=== PATIENT | male | born 1980 | race Caucasian/White ===

== ENCOUNTER 2023-08-23 14:42 | Outpatient (AMB) | payer OTHER, SELFPAY ==
--- NOTE | 2023-08-23 14:52 | AM.OFFWIN_ITS ---
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 Pt denies any ear pain. Allergies No Known Allergies Allergy (Verified 08/23/23 14:56) HPI HPI Comments History of Present Illness Details 43-year-old male presents today complain ing of hearing loss in his right ear for the last 3 weeks. He did try some omph-zbg-zhsdraj cerumen removed her but that has not helped. [facility] Social History (Updated 08/23/23 @ 14:56 by Amy Frank MA) Household Members Other:: Mother Housing: House Alcohol intake: never Patient Tobacco Use Status: Never used Tobacco Review of Systems Const All systems reviewed & are unremarkable except as noted in HPI and below Physical Exam Vital Signs: Last Vital Signs Temp 98.2 F 08/23/23 14:53 Pulse 81 08/23/23 14:53 BP 122/84 08/23/23 14:53 Pulse Ox 98 08/23/23 14:53 Oxygen Delivery Method Room Air 08/23/23 14:53 BMI result Body Mass Index 27.8 Const General: healthy appearing HEENT Head: Yes normal to inspection, Yes normocephalic and Yes atraumatic Ears: hearing grossly normal bilaterally and unable to visualize TM (Bilateral cerumen impaction) General nose exam: Normal external nose present Results Reviewed Results Reviewed: Bilateral ear irrigation was successful and clear upon completion of procedure Assessment & Plan Assessment & Plan (1) Impacted cerumen of both ears: Code(s): H61.23 - Impacted cerumen, bilateral Plan: The patient will use [id number] irrigation as needed once per week. Plan See plan Coding Level of Care Code Est Pt Level 3 (59033) Diagnoses Impacted cerumen of both ears H61.23
[2023-08-23 14:53] VITALS: BP 122/84; PULSE 81; TEMP 36.8; O2SAT 98; BMI 27.8
== END 2023-08-23 15:45 | disposition home or self-care (01) ==
PROVIDERS: Visit Provider Physician Assistant Medical
DX: H61.23 Impacted cerumen, bilateral (principal)
CPT/HCPCS: 99213

== ENCOUNTER 2023-09-19 10:57 | Outpatient (AMB) | payer OTHER, SELFPAY ==
[2023-09-19 11:06] VITALS: BP 122/78; PULSE 82; TEMP 36.6; O2SAT 98; BMI 27.8
--- NOTE | 2023-09-19 11:06 | AM.OFFWIN_ITS ---
Intake Vital Signs 3 09/19/23 11:06 Height 5 ft 11 in Weight 199 lb BMI 27.8 BP 122/78 Blood Pressure Location Lt brachial Position Sitting Pulse 82 Pulse Source Pulse Oximeter Temp 97.9 F Temp Source Oral Pulse Oximetry (%) 98 Oxygen Delivery Method Room Air Intake Visit Reasons: EP RT foot ?Gout Patient Tobacco Use Status: Never used Tobacco Allergies No Known Allergies Allergy (Verified 09/19/23 11:14) Medication List - Last Reconciled 09/19/23 by Pamella Rosas MD No Known Home Meds Do you need a note to return to daycare/school/sports/work: Yes HPI EP RT foot ?Gout 2 HPI0 Details Patient is a 43-year-old gentleman came in today to be evaluated for possible gout Patient says that he has this pain at least once a year and it is always on the same foot enzymes joint One week ago he ate shrimp On examination patient is 1st metatarsophalangeal joint right side is tender to palpation is slightly swollen Patient was instructed to avoid too much protein drink lots of water I am treating him with indomethacin and prednisone. Patient is to follow with the primary care [facility] Social History Household Members Other:: Mother Housing: House Alcohol intake: never Patient Tobacco Use Status: Never used Tobacco Review of Systems Const All systems reviewed & are unremarkable except as noted in HPI and below Physical Exam Vital Signs: Last Vital Signs Temp 97.9 F 09/19/23 11:06 Pulse 82 09/19/23 11:06 BP 122/78 09/19/23 11:06 Pulse Ox 98 09/19/23 11:06 Oxygen Delivery Method Room Air 09/19/23 11:06 BMI result Body Mass Index 27.8 Const General: no acute distress Orientation/consciousness: patient oriented x3 Eyes General: appearance normal, both eyes and all related structures Resp Effort & Inspection: normal respiratory effort and able to speak in complete sentences Auscultation: clear to auscultation bilaterally Neuro General: patient oriented x3 Extrem Ankle/foot/toe images: 2 1. Tender to pressure, slightly swollen Psych Mental Status: mental status grossly normal Assessment & Plan Assessment & Plan (1) Acute gout: Code(s): M10.9 - Gout, unspecified Qualifiers: Gout site: foot Gout etiology: idiopathic Laterality: right Qualified Code(s): M10.071 - Idiopathic gout, right ankle and foot Plan Patient is a 43-year-old gentleman came in today to be evaluated for possible gout Patient says that he has this pain at least once a year and it is always on the same foot enzymes joint One week ago he ate shrimp On examination patient is 1st metatarsophalangeal joint right side is tender to palpation is slightly swollen Patient was instructed to avoid too much protein drink lots of water I am treating him with indomethacin and prednisone. Review system: Negative for any fever chills need tingling and numbness in the dose, no nausea vomiting abdominal pain Patient is to follow with the primary care Medications: New 2 indomethacin administer with food or milk 50 mg PO BID 14 caps 0RF 7 days prednisone 50 mg PO DAILY 5 tabs 0RF 5 days Coding Level of Care Code Est Pt Level 3 (63166) Diagnoses Acute idiopathic gout of right foot M10.071 Gout site: foot Gout etiology: idiopathic Laterality: right
== END 2023-09-19 14:02 | disposition home or self-care (01) ==
PROVIDERS: Visit Provider Internal Medicine
DX: M10.071 Idiopathic gout, right ankle and foot (principal)
CPT/HCPCS: 99213

== ENCOUNTER 2023-11-09 13:12 | Outpatient (AMB) | payer OTHER, SELFPAY ==
--- NOTE | 2023-11-09 13:15 | AM.OFFWIN_ITS ---
Intake Vital Signs 11/09/23 13:18 Height 5 ft 11 in Weight 200 lb BMI 27.9 BP 120/80 Blood Pressure Location Lt brachial Position Sitting Pulse 74 Pulse Source Pulse Oximeter Temp 98.1 F Temp Source Oral Pulse Oximetry (%) 98 Oxygen Delivery Method Room Air Intake Visit Reasons: EP ?Gout LT foot Intake Note: pt here c/o LT foot pain. ? gout. Started this morning Patient Tobacco Use Status: Never used Tobacco Allergies No Known Allergies Allergy (Verified 11/09/23 13:15) Do you need a note to return to daycare/school/sports/work: No HPI HPI Comments History of Present Illness Details Patient is a 43-year-old male with a past medical history of recent gout flare in his right great toe who is complaining today of pain in his left great toe joint. He states it is painful when he pushes on the joint, but otherwise is not as painful as it was before when he had a flare. He states he did cut out eating shrimp and he is concerned that he has another flare so quickly. He does have an appointment to establish care with a new PCP in the coming months. Denies any fevers or injury to the toe. He has not taken any medication to try to make better and he states only pushing on it really hard makes it worse. He states it is not nearly as painful as the last time he had a flare in August. [facility] Social History Household Members Other:: Mother Housing: House Alcohol intake: never Patient Tobacco Use Status: Never used Tobacco Review of Systems Const All systems reviewed & are unremarkable except as noted in HPI and below Physical Exam Vital Signs: Last Vital Signs Temp 98.1 F 11/09/23 13:18 Pulse 74 11/09/23 13:18 BP 120/80 11/09/23 13:18 Pulse Ox 98 11/09/23 13:18 Oxygen Delivery Method Room Air 11/09/23 13:18 BMI result Body Mass Index 27.9 Const General: cooperative, healthy appearing, comfortable, no acute distress and well developed Orientation/consciousness: patient oriented x3 Limitations: no limitations Neuro General: patient oriented x3 Extrem Other: Left great toe, tenderness to deep palpation, no swelling or erythema or signs of infection noted, full range of motion, neurovascularly intact. Assessment & Plan Assessment & Plan (1) Acute gout: Code(s): M10.9 - Gout, unspecified Qualifiers: Gout etiology: idiopathic Gout site: foot Laterality: right Qualified Code(s): M10.071 - Idiopathic gout, right ankle and foot Plan: Likely very early gout flare, advised I would send indomethacin today and if it gets much worse over the coming days to please call me and then I will send prednisone. Patient understands and agrees with plan. Plan See above Medications: Refilled indomethacin administer with food or milk 50 mg PO BID 7 days 14 caps 0RF Coding Level of Care Code New Pt Level 3 (25425) Diagnoses Acute idiopathic gout of right foot M10.071 Gout etiology: idiopathic Gout site: foot Laterality: right
[2023-11-09 13:18] VITALS: BP 120/80; PULSE 74; TEMP 36.7; O2SAT 98; BMI 27.9
== END 2023-11-09 14:23 | disposition home or self-care (01) ==
PROVIDERS: Visit Provider Physician Assistant
DX: M10.071 Idiopathic gout, right ankle and foot (principal)
CPT/HCPCS: 99213

== ENCOUNTER 2024-03-18 12:18 | Outpatient (AMB) | payer OTHER, SELFPAY ==
[2024-03-18 12:24] VITALS: BP 118/70; PULSE 72; O2SAT 98; BMI 27.3
--- NOTE | 2024-03-18 12:24 | MHC.PC.OV ---
Vital Signs 03/18/24 12:24 Height 5 ft 11 in Weight 196 lb BMI 27.3 BP 118/70 Blood Pressure Location Rt brachial Position Sitting Pulse 72 Pulse Source Pulse Oximeter Pulse Oximetry (%) 98 Oxygen Delivery Method Room Air Intake Visit Reasons: Est care/ Requesting a PE/last seen over 20 years Intake Note: pt is here to est care, requesting a PE. [employer] Required: No Accompanied by: Self / Same As Patient Allergies No Known Allergies Allergy (Verified 03/18/24 12:24) Medication List - Last Reconciled 03/18/24 by AMBER Ellis No Known Home Meds Tobacco use date assessed: 03/18/24 Dental Screening Dental Screen Date: 03/18/24 Did you have a dental visit in the last 12 months?: Yes Did you have a dental problem in the last 6 months where you did not have access to dental care?: No Was dental information given to patient?: Patient has dentist HPI Est care/ Requesting a PE/last seen over 20 years HPI Details New pt is here for a PE. Will order labs. [facility] Surgical History No pertinent past surgical history Family History Mother Heart attack Father No problems noted. Social History Household Members Other:: Mother Housing: House Alcohol intake: never Patient Tobacco Use Status: Never used Tobacco e-Cigarette/Vaping Use: Never Used service: No Current occupational status: employed Current occupational exposures/hazards: No Cognitive needs: No Hearing needs: No Vision needs: No Questionnaire PHQ-9 Over the last 2 weeks, how often have you been bothered by any of the following problems? 1. Little interest or pleasure in doing things: not at all 2. Feeling down, depressed, or hopeless: not at all 3. Trouble falling or staying asleep, or sleeping too much: not at all 4. Feeling tired or having little energy: not at all 5. Poor appetite or overeating: not at all 6. Feeling bad about yourself - or that you are a failure or have let yourself or your family down: not at all 7. Trouble concentrating on things, such as reading the newspaper or watching television: not at all 8. Moving or speaking so slowly that other people could have noticed. Or the opposite - being so fidgety or restless that you have been moving around a lot more than usual: not at all 9. Thoughts that you would be better off or of hurting yourself in some way: not at all Total score: 0 Depression Screening Interpretation: Negative Depression Screening Done: Yes 38094 - PHQ-9 Billing: Yes Source: Developed by Drs. Fratnz Aguilera, Sugey Mcdonald, Adan Forde and colleagues, with an educational kd from [employer]. Thrive Questionnaire Date Thrive assessed: 03/18/24 I am a: Patient What is your living situation today?: I have a steady place to live Within the past 12 months, did the food you bought not last and you didn't have the money to get more?: Never true Within the past 12 months, did you worry whether your food would run out before you got money to buy more?: Never true Do you have trouble paying for medicines?: No Do you have trouble getting transportation to medical appointments?: No Do you have trouble paying your heating and electricity bill?: No Do you have trouble taking care of your child, family member or friend?: No Do you have trouble with day-to-day activities such as bathing, preparing meals, shopping, managing finances, etc.?: No Are you currently unemployed and looking for a job?: No Are you interested in more education?: Yes Please select the resources that you would like help with: None Currently or been in a relationship where the following occur: No concerns reported THRIVE Score: 0 AUDIT C Alcohol Use Questionnaire (AUDIT-C) 1. How often do you have a drink containing alcohol?: Monthly or less 2. How many drinks containing alcohol do you have on a typical day when you are drinking?: 1 or 2 3. How often do you have six or more drinks on one occasion?: Never Total Score: 1 Score Reviewed/Action Taken: Yes YUSUF-7 AMB Questionnaire YUSUF-7 Date YUSUF - 7 assessed: 03/18/24 Feeling nervous, anxious, or on edge: 0 = Not at all Not being able to stop or control worryin = Not at all Worrying too much about different things: 1 = Several days Trouble relaxin = Not at all Being so restless that it is hard to sit still: 0 = Not at all Becoming easily annoyed or irritable: 0 = Not at all Feeling afraid as if something awful might happen: 0 = Not at all Total YUSUF-7 score (0-4 normal; 5-9 mild; 10-14 moderate; 15-21 severe): 1 Source: Developed by Drs. Frantz Aguilera, Sugey Mcdonald, Adan Forde and colleagues, with an educational kd from [employer]. YUSUF-7 Assessment Billing YUSUF-7 Assessment Tool: YUSUF-7 Assessment 27111 Review of Systems Const Denies chills and Denies fever(s) Eyes Denies blurry vision ENT Denies vertigo, Denies dizziness and Denies sore throat Card Denies chest pain at rest, Denies chest pain with activity, Denies diaphoresis, Denies dyspnea and Denies dyspnea on exertion Resp Denies cough, Denies dyspnea, Denies dyspnea on exertion and Denies wheezing GI Denies abdominal pain, Denies melena, Denies hematochezia, Denies constipation, Denies diarrhea and Denies loose stools Denies hematuria Musc Denies numbness and Denies tingling Skin/Breast Denies lesions Neuro Denies vertigo, Denies dizziness, Denies numbness and Denies tingling Psych Denies anxiety, Denies depression, Denies homicidal ideation, Denies suicidal ideation and Denies other (substance abuse) Aller/Immun Denies wheezing Physical exam (Primary Care) Vital Signs: Last Vital Signs Pulse 72 03/18/24 12:24 BP 118/70 03/18/24 12:24 Pulse Ox 98 03/18/24 12:24 Oxygen Delivery Method Room Air 03/18/24 12:24 BMI result Body Mass Index 27.3 Tobacco/Smoking Status: Tobacco use Status Tobacco use date assessed 03/18/24 03/18/24 12:26 Patient Tobacco Use Status Never used Tobacco 03/18/24 12:26 e-Cigarette/Vaping Use Never Used 03/18/24 12:26 PHQ-9: PHQ-9 Score PHQ-9: Total score 0 03/18/24 12:32 Depression Screening Interpretation: Negative Thrive Assessment: Date of Thrive Assessment Date Thrive assessed 03/18/24 03/18/24 12:26 Currently or been in a relationship where the following occur: No concerns reported Const General: cooperative Nutritional Appearance: well nourished Orientation/consciousness: patient oriented x3 HENMT Head: Yes normal to inspection, Yes normocephalic and Yes atraumatic Ears: TM's normal bilaterally Eyes General: appearance normal, both eyes and all related structures Alignment and Position: alignment normal and position normal Neck Neck: Yes normal visual inspection, Yes no lymphadenopathy and Yes supple Resp Effort & Inspection: normal respiratory effort Auscultation: clear to auscultation bilaterally Cardio Rate: regular rate Rhythm: regular rhythm Heart sounds: S1 normal heart sound present, S2 normal heart sound present and no murmurs GI Palpation (GI): Soft to palpation and nontender Auscultation: normal bowel sounds Male General Exam: Yes normal external exam Penis: normal penis Scrotum: scrotum normal, testes descended bilaterally and no inguinal hernias Testes: no testicular mass Skin Rashes: no rashes Neuro General: patient oriented x3, moves all extremities, no focal motor deficits and deep tendon reflexes 2+ bilaterally Romberg Test: Negative Psych Appearance: grossly normal Mental Status: mental status grossly normal Speech and movement: Normal speech and movement present Affect: normal affect Attitude: cooperative Thought process: Normal thought process present Thought content: Normal thought content present Insight: Good insight present (Psych) Judgement: Good judgement present (Psych) Coding Level of Care Code New Pt Prev Care 40-64y(99305) Diagnoses Physical exam Z00. Additional Codes YUSUF-7 Assessment Billing - YUSUF-7 Assessment Tool: YUSUF-7 Assessment 67062 ([id number]) Assessment & Plan Assessment & Plan (1) Physical exam: Code(s): Z. - Encounter for general adult medical examination without abnormal findings Category: Medical Plan The patient agreed to the use of a product manager medical device for this encounter. Scribed for AMBER Ambrocio by Dea Brown product manager medical device, on 03/18/2024 at 12:55 EST. Orders: Orders Comprehensive [place]. Panel Fast Today Z. - Encounter for general adult medical examination without abnormal findings TSH reflex Free T4 Today Z00.00 - Encounter for general adult medical examination without abnormal findings Complete Blood Count Auto Diff Today Z00.00 - Encounter for general adult medical examination without abnormal findings UA CC w/rflx Micro + Cult Today Z00.00 - Encounter for general adult medical examination without abnormal findings Lipid Panel Today Z00.00 - Encounter for general adult medical examination without abnormal findings
== END 2024-03-18 13:08 | disposition home or self-care (01) ==
PROVIDERS: Visit Provider Nurse Practitioner Family
DX: Z00.00 Encounter for general adult medical examination without abnormal findings (principal)

== ENCOUNTER → 2024-03-18 12:18 | Outpatient (BNVA) | payer OTHER, SELFPAY | PROVIDERS: Visit Provider Nurse Practitioner Family | DX: Z00.00 Encounter for general adult medical examination without abnormal findings (principal) | CPT/HCPCS: 96127; 99386 ==

== ENCOUNTER 2024-03-20 09:51 | Outpatient (REF) | payer OTHER, SELFPAY ==
[2024-03-20 13:23] LABS: MANUAL DIFF FLAG NO
[2024-03-20 13:23] LABS: Appearance Urine Clear; Color Urine Yellow; Glucose Urine UA Negative (Negative); Leukocyte Esterase Urine Negative (Negative); Nitrite Urine Negative (Negative); PH 5.5 (5.0-9.0); Urine Blood Negative (Negative); Urine Ketones Negative (Negative); Urine Protein Negative (Neg-Trace)
[2024-03-20 13:33] LABS: Basophils Percent Auto 0.7 % (0-2); Eosinophils Absolute Auto 0.2 X10*3/uL (0.0-0.4); Eosinophils Percent Auto 2.9 % (0-4); Hematocrit 45.6 % (42.0-52.0); Hemoglobin 15.4 g/dl (14.0-18.0); Imm Gran Abs Auto 0.02 X10*3/uL (0.00-0.03); Imm Gran Pct Auto 0.3 % (0.0-0.4); Lymphocytes Percent Auto 16.8 % (20-40); Mean Corpuscular HGB Conc 33.8 g/dl (31.0-36.0); Mean Corpuscular Hemoglobin 26.9 pg (27.0-33.0); Mean Corpuscular Volume 79.6 fL (80.0-98.0); Mean Platelet Volume 10.1 fL (9.4-12.4); Monocytes Absolute Auto 0.5 X10*3/uL (0.1-1.2); Monocytes Percent Auto 9.1 % (2-11); Neutrophils Absolute Auto 4.1 x10*3/uL (2.0-8.3); Neutrophils Percent Auto 70.2 % (45-73); Platelet Count 168 X10*3/uL (160-400); Red Blood Count 5.73 X10*6/uL (4.60-5.80); Red Cell Distribution Width 12.8 % (11.0-16.0); White Blood Count 5.9 X10*3/uL (4.8-10.8)
[2024-03-20 14:02] LABS: Alanine Aminotransferase 30 U/L (0-40); Albumin Level 4.1 g/dL (3.5-5.0); Alkaline Phosphatase 70 U/L (39-117); Anion Gap 10 (12-20); Aspartate Amino Transferase 26 U/L (5-37); Blood Urea Nitrogen 14 mg/dL (9-16); Calcium 9.6 mg/dL (8.4-10.2); Carbon Dioxide 31 mmol/L (22-29); Chloride 108 mmol/L (96-108); Cholesterol 156 mg/dL (<200); Estimated Glomerular Filt Rate > 60; Glucose Fasting 93 mg/dL (60-99); HDL Cholesterol 27 mg/dL (>40); LDL Cholesterol Calculated 102 mg/dL (<100); Potassium 3.9 mmol/L (3.3-5.1); Sodium 145 mmol/L (135-145); Total Protein 6.7 g/dL (6.5-8.0); Triglycerides 135 mg/dL (<150)
[2024-03-20 14:07] LABS: TSH reflex Free T4 1.07 uIU/mL (0.32-4.0)
== END 2024-03-20 09:52 | disposition home or self-care (01) ==
LOC: HO.HMGCLDS 09:51
PROVIDERS: PCP Nurse Practitioner Family; Visit Provider Nurse Practitioner Family
DX: Z00.00 Encounter for general adult medical examination without abnormal findings (principal)
CPT/HCPCS: 36415; 80053; 80061; 81003; 84443; 85025

== ENCOUNTER 2025-05-06 10:17 | Outpatient (AMB) | payer OTHER, SELFPAY ==
--- NOTE | 2025-05-06 10:59 | A.OFFPC_ITS ---
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 Accompanied by: Self / Same As Patient Allergies No Known Allergies Allergy (Verified 05/06/25 11:16) Medication List - Last Reconciled 05/06/25 by VANESSA Ellis No Known Home Meds Tobacco use date assessed: 05/06/25 Dental Screening Dental Screen Date: 05/06/25 Did you have a dental visit in the last 12 months?: Yes Did you have a dental problem in the last 6 months where you did not have access to dental care?: No Was dental information given to patient?: Patient has dentist HPI Annual PE-update pcp HPI Details History of Present Illness The patient is a 45 year old male presenting for physical examination. He reports doing very well. Health Maintenance - He is due for a colon cancer screening next year. - Fasting labs will be ordered for the n ear future. Social History Review of Systems - General: Denies pain. - Respiratory: Denies dyspnea. - Gastrointestinal: Denies abdominal surya n, constipation, or diarrhea. - Psychiatric: Denies suicidal or homici edvin ideation. Physical Exam General: Cooperative, healthy appearing, comfortable, no acute distress and well developed Orientation: Patient oriented x3 Limitations: No limitations Head: Normal to inspection Ears: Extensive cerumen noted bilaterally, right greater than left. After ear lavage, TMs were easily seen Nose: Normal external nose present Face and sinus: Normal facial exam Eyes: Appearance normal, both eyes and all related structures Neck: Normal visual inspection and Yes full ROM Respiratory: Normal respiratory effort and able to speak in complete sentences. Clear to auscultation bilaterally Cardiovascular: Regular rate and rhythm. Normal S1 and S2 GI: Normal to inspection. Soft to palpation and nontender : Testicles without masses/lesions and no hernias appreciated Skin: No rashes or lesions noted Neuro: Patient oriented x3 Extremities: Normal to inspection Results Plan 1. Encounter For General Adult Medical E xamination Schedule fasting labs in the near future. 2. Cerumen Impaction, Bilateral Ear lavage was performed, after which the tympanic membranes were easily visualized. 3. Preventative Care: Colon Cancer Romulo blake He is due for a colon cancer screening next year. Discussion Notes I have advised the patient that he is due for a colon screening next year. He will also get fasting labs in the near future. Patient Instructions - Please get fasting lab work done in e near future. - You are due for a colon cancer screeni next year. [facility] Surgical History No pertinent past surgical history Family History Mother Heart attack Father No problems noted. Social History Household Members Other:: Mother Housing: House Alcohol intake: never Patient Tobacco Use Status: Never used Tobacco e-Cigarette/Vaping Use: Never Used service: No Current occupational status: employed Current occupational exposures/hazards: No Cognitive needs: No Hearing needs: No Vision needs: No Questionnaire PHQ-9 Over the last 2 weeks, how often have you been bothered by any of the following problems? 1. Little interest or pleasure in doing things: not at all 2. Feeling down, depressed, or hopeless: not at all 3. Trouble falling or staying asleep, or sleeping too much: not at all 4. Feeling tired or having little energy: not at all 5. Poor appetite or overeating: not at all 6. Feeling bad about yourself - or that you are a failure or have let yourself or your family down: not at all 7. Trouble concentrating on things, such as reading the newspaper or watching television: not at all 8. Moving or speaking so slowly that other people could have noticed. Or the opposite - being so fidgety or restless that you have been moving around a lot more than usual: not at all 9. Thoughts that you would be better off or of hurting yourself in some way: not at all Total score: 0 Depression Screening Interpretation: Negative Depression Screening Done: Yes Source: Developed by Drs. Frantz Aguilera, Sugey Mcdonald, Adan Forde and colleagues, with an educational kd from [employer]. Thrive Questionnaire Date Thrive assessed: 03/18/24 I am a: Patient What is your living situation today?: I have a steady place to live Within the past 12 months, did the food you bought not last and you didn't have the money to get more?: Never true Within the past 12 months, did you worry whether your food would run out before you got money to buy more?: Never true Do you have trouble paying for medicines?: No Do you have trouble getting transportation to medical appointments?: No Do you have trouble paying your heating and electricity bill?: No Do you have trouble taking care of your child, family member or friend?: No Do you have trouble with day-to-day activities such as bathing, preparing meals, shopping, managing finances, etc.?: No Are you currently unemployed and looking for a job?: No Are you interested in more education?: Yes Please select the resources that you would like help with: None Currently or been in a relationship where the following occur: No concerns reported THRIVE Score: 0 AUDIT C Alcohol Use Questionnaire (AUDIT-C) 1. How often do you have a drink containing alcohol?: Monthly or less 2. How many drinks containing alcohol do you have on a typical day when you are drinking?: 3 or 4 3. How often do you have six or more drinks on one occasion?: Less than monthly Total Score: 3 YUSUF-7 AMB Questionnaire YUSUF-7 Date YUSUF - 7 assessed: 03/18/24 Feeling nervous, anxious, or on edge: 0 = Not at all Not being able to stop or control worryin = Not at all Worrying too much about different things: 0 = Not at all Trouble relaxin = Not at all Being so restless that it is hard to sit still: 0 = Not at all Becoming easily annoyed or irritable: 0 = Not at all Feeling afraid as if something awful might happen: 0 = Not at all Total YUSUF-7 score (0-4 normal; 5-9 mild; 10-14 moderate; 15-21 severe): 0 Source: Developed by Drs. Frantz Aguilera, Sugey Mcdonald, Adan Forde and colleagues, with an educational kd from [employer]. YUSUF-7 Assessment Billing YUSUF-7 Assessment Tool: YUSUF-7 Assessment 33747 Physical exam (Primary Care) Vital Signs: Last Vital Signs Pulse 67 05/06/25 11:02 Resp 16 05/06/25 11:02 BP 120/78 05/06/25 11:02 Pulse Ox 99 05/06/25 11:02 Oxygen Delivery Method Room Air 05/06/25 11:02 BMI result Body Mass Index 25.2 Tobacco/Smoking Status: Tobacco use Status Tobacco use date assessed 05/06/25 05/06/25 11:08 Patient Tobacco Use Status Never used Tobacco 05/06/25 10:59 e-Cigarette/Vaping Use Never Used 05/06/25 10:59 PHQ-9: PHQ-9 Score PHQ-9: Total score 0 05/06/25 11:18 Depression Screening Interpretation: Negative Thrive Assessment: Date of Thrive Assessment Date Thrive assessed 03/18/24 05/06/25 10:59 Currently or been in a relationship where the following occur: No concerns reported Office Procedures Cerumen Removal From which ear canal was the cerumen removed: bilateral Removal: irrigation Notes: patient tolerated procedure well, no complications and ear canal clear [id number] Irrigation/Lavage Flu Questionnaire Does the patient have a severe egg allergy?: No Does the patient have severe life threatening allergies?: No Does the patient have a fever or illness today?: No Has the patient ever had Guillain-[place] Syndrome?: No Has the patient ever had any past reaction to a flu shot?: No Immunizations Fluarix [id number] (PF) 45 mcg (15 mcg x 3)/0.5 mL IM syringe Performing Provider: VANESSA Ellis Performing Location: [facility] Administered by: Nasreen Barrientos MA on 05/06/25 11:33 Dose Route Admin Location Dispensed Lot Number Expiration Date NDC Slip Caster 0.5 mL IM Left Deltoid 0.5 mL [id number] 11/25/25 20072-588-40 [employer] VIS Given Date VIS Provided VIS Publication Date 05/06/25 Single Vaccine 24 Eligibility Eligibility Date Funding Source Not [facility] Eligible 05/06/25 Private Coding Level of Care Code Est Pt Level 3 (98596) Est Pt Prev Care 40-64y(84979) Diagnoses Physical exam Z00.00 CPT Codes Office Procedure - CPT: 00038-Cpy Irrigation/Lavage ([id number]) Additional Codes YUSUF-7 Assessment Billing - YUSUF-7 Assessment Tool: YUSUF-7 Assessment 67192 ([id number]) Assessment & Plan Assessment & Plan (1) Physical exam: Code(s): Z00.00 - Encounter for general adult medical examination without abnormal findings Category: Medical Plan . Orders: Orders Influenza [id number] Immunization Today Z23 - Encounter for immunization
[2025-05-06 11:02] VITALS: BP 120/78; PULSE 67; RESP 16; O2SAT 99; BMI 25.2
== END 2025-05-06 11:40 | disposition home or self-care (01) ==
PROVIDERS: PCP Nurse Practitioner Family; Visit Provider Nurse Practitioner Family
DX: Z23 Encounter for immunization (principal); Z00.00 Encounter for general adult medical examination without abnormal findings; H61.23 Impacted cerumen, bilateral

== ENCOUNTER → 2025-05-06 10:17 | Outpatient (BNVA) | payer OTHER, SELFPAY | PROVIDERS: PCP Nurse Practitioner Family; Visit Provider Nurse Practitioner Family | DX: Z00.00 Encounter for general adult medical examination without abnormal findings (principal); H61.23 Impacted cerumen, bilateral; Z23 Encounter for immunization | CPT/HCPCS: 69209; 90471; 90656; 96127; 99396 ==

== ENCOUNTER 2025-05-07 06:18 | Outpatient (REF) | payer OTHER, SELFPAY ==
[2025-05-07 10:03] LABS: MANUAL DIFF FLAG NO
[2025-05-07 10:09] LABS: Hematocrit 39.2 % (42.0-52.0); Hemoglobin 13.2 g/dl (14.0-18.0); Imm Gran Abs Auto 0.01 X10*3/uL (0.00-0.03); Imm Gran Pct Auto 0.2 % (0.0-0.4); Lymphocytes Absolute Auto 0.8 X10*3/uL (1.2-4.9); Mean Corpuscular HGB Conc 33.7 g/dl (31.0-36.0); Mean Corpuscular Hemoglobin 27.5 pg (27.0-33.0); Mean Corpuscular Volume 81.7 fL (80.0-98.0); NRBC Abs Auto 0.000 X10*3/uL (0.0-0.012); NRBC Pct Auto 0.0 /100WBC (0.0-0.2); Platelet Count 172 X10*3/uL (160-400); Red Blood Count 4.80 X10*6/uL (4.60-5.80); White Blood Count 5.2 X10*3/uL (4.8-10.8)
[2025-05-07 10:17] LABS: Appearance Urine Clear; Glucose Urine UA Negative (Negative); PH 5.5 (5.0-9.0); Specific Gravity - Urine 1.020 (1.005-1.025)
[2025-05-07 10:37] LABS: Alanine Aminotransferase 30 U/L (0-40); Albumin Level 3.7 g/dL (3.5-5.0); Alkaline Phosphatase 61 U/L (39-117); Anion Gap 8 (12-20); Aspartate Amino Transferase 29 U/L (5-37); Blood Urea Nitrogen 14 mg/dL (9-16); Calcium 8.6 mg/dL (8.4-10.2); Carbon Dioxide 29 mmol/L (22-29); Chloride 110 mmol/L (96-108); Cholesterol 113 mg/dL (<200); Estimated Glomerular Filt Rate > 60; HDL Cholesterol 30 mg/dL (>40); Potassium 3.6 mmol/L (3.3-5.1); Sodium 143 mmol/L (135-145); Total Protein 5.5 g/dL (6.5-8.0); Triglycerides 66 mg/dL (<150); Uric Acid 7.0 mg/dL (3.4-7.0)
== END 2025-05-07 06:19 ==
LOC: HO.HMGCLDS 06:18
PROVIDERS: PCP Nurse Practitioner Family; Visit Provider Nurse Practitioner Family
DX: Z00.00 Encounter for general adult medical examination without abnormal findings (principal); M10.071 Idiopathic gout, right ankle and foot
CPT/HCPCS: 36415; 80053; 80061; 81003; 84443; 84550; 85025